=== PATIENT | male | born 1950 | race Caucasian/White ===

== ENCOUNTER 2022-03-26 11:35 | Outpatient (CLI) | payer OTHER, SELFPAY | END 2022-03-26 11:36 | disposition home or self-care (01) | PROVIDERS: PCP Family Medicine; Visit Provider Family Medicine | DX: E78.5 Hyperlipidemia, unspecified (principal) | CPT/HCPCS: 80061; 84460 ==

== ENCOUNTER 2022-09-06 08:05 | Outpatient (CLI) | payer OTHER, SELFPAY | END 2022-09-06 08:06 | disposition home or self-care (01) | LOC: NFLDREF 08:06 | PROVIDERS: PCP Family Medicine; Visit Provider Internal Medicine | DX: Z00.00 Encounter for general adult medical examination without abnormal findings (principal); Z12.5 Encounter for screening for malignant neoplasm of prostate | CPT/HCPCS: 84153 ==

== ENCOUNTER 2023-03-02 07:32 | Outpatient (CLI) | payer OTHER, SELFPAY | END 2023-03-02 07:33 | disposition home or self-care (01) | LOC: NFLDREF 12:18 | PROVIDERS: PCP Family Medicine; Referring Provider Family Medicine; Visit Provider Internal Medicine | DX: R97.20 Elevated prostate specific antigen [PSA] (principal); Z12.5 Encounter for screening for malignant neoplasm of prostate | CPT/HCPCS: 84153 ==

== ENCOUNTER 2023-07-28 07:30 | Outpatient (CLI) | payer OTHER, SELFPAY ==
--- OUTSIDE RECORDS SUMMARY | 2023-07-28 12:05 | XMS_ITS | Clinical Summary ---
Author Name Unknown Organization [facility] Address [place], [place] [address] Care Team Providers Care Taffy Puller Name Role Phone Pcp, No Primary Care Provider Unavailabl e Allergies Active Allergy Reactions Criticality Noted Date Comments Oxycodone Itching Low 08/15/2020 Medications Medication Sig Dispensed Refills Start Date End Date Status meloxicam 15 mg tablet 0 08/15/2020 Ac tive aspirin (ECOTRIN) 81 mg enteric coated tablet Daily 0 Active Social History Tobacco Use Types Packs/Day Years Used Date Smoking Tobacco: Never Assessed Social Connections Answer Date Recorded Frequency of Communication with Friends and Fami ly Not on file 10/08/2021 Sex and Gender Information Value Date Recorded Sex Assigned at Not on file Gender Identity Not on file Sexual Orientation Not on file Last Filed Vital Signs Vital Sign Reading Time Taken Comments Blood Pressure 190/64 09/02/2020 3:42 PM 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, typical Bp is normal Pulse 83 09/02/2020 3:42 PM 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 LEADER Temperature - - Respiratory Rate - - Oxygen Saturation 97% 09/02/2020 3:4 2 PM 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 LEADER Inhaled Oxygen Concentration - - Weight 87.5 kg (193 lb) 09/02/2020 3:42 PM 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 LEADER Height - - Body Mass Index - - Plan of Treatment Health Maintenance Due Date Last Done Comments COVID-19 vaccine series (#1) 05/23/1951 Tdap 1961 Depression screening for age 12+ 1962 BMI (ht and wt on same day) for age 18+ 1968 Hepatitis C screening for age 18-79 1968 Tetanus booster 1970 Colonoscopy through age 75 11/21/1995 Zoster (shingles) series for age 50+ (1 of 2) 11/21/19 01 Lipids for age 45-75 06/23/2011 06/23/2006 Medicare Wellness for age 65+ 11/21/2015 Pneumococcal series for age 65+ (1 of 1 - PCV) 016 Influenza for age 65+ 02/25/2023 Care Teams Taffy Puller Relationship Specialty Start Date End Date Pcp, No . PCP - General 09/02/20
== END 2023-07-28 07:31 | disposition home or self-care (01) ==
LOC: NFLDREF 12:04
PROVIDERS: PCP Internal Medicine; Referring Provider Internal Medicine; Visit Provider Family Medicine
DX: E78.5 Hyperlipidemia, unspecified (principal); I10 Essential (primary) hypertension; R97.20 Elevated prostate specific antigen [PSA]
CPT/HCPCS: 80053; 80061; 84153

== ENCOUNTER 2023-08-08 15:00 | Outpatient (CLI) | payer OTHER, SELFPAY ==
--- OUTSIDE RECORDS SUMMARY | 2023-08-08 15:03 | XMS_ITS | Clinical Summary ---
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 PCP - General 09/02/20
== END 2023-08-08 15:01 | disposition home or self-care (01) ==
PROVIDERS: PCP Internal Medicine; Visit Provider Family Medicine
DX: Z00.00 Encounter for general adult medical examination without abnormal findings (principal); D64.9 Anemia, unspecified; I10 Essential (primary) hypertension; E78.00 Pure hypercholesterolemia, unspecified
CPT/HCPCS: 82607; 82728; 83540

== ENCOUNTER 2023-11-10 08:12 | Outpatient (CLI) | payer OTHER, SELFPAY ==
--- OUTSIDE RECORDS SUMMARY | 2023-11-10 08:15 | XMS_ITS | Clinical Summary ---
Author Name Unknown Organization [facility] Address [place], [place] [address] Care Team Providers Care Employee Representative Name Role Phone Pcp, No Primary Care Provider Unavailabl e Allergies Active Allergy Reactions Criticality Noted Date Comments Oxycodone Itching Low 08/15/2020 Medications Medication Sig Dispensed Refills Start Date End Date Status meloxicam 15 mg tablet 08/15/2020 Ac tive aspirin (ECOTRIN) 81 mg enteric coated tablet Daily Active Social History Tobacco Use Types Packs/Day [...] Comments Blood Pressure 190/64 09/02/2020 3:42 PM INSTRUCTOR LOOPING 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, typical Bp is normal Pulse 83 09/02/2020 3:42 PM INSTRUCTOR LOOPING Temperature - - Respiratory Rate - - Oxygen Saturation 97% 09/02/2020 3:4 2 PM INSTRUCTOR LOOPING Inhaled Oxygen Concentration - - Weight 87.5 kg (193 lb) 09/02/2020 3:42 PM INSTRUCTOR LOOPING Height - - Body Mass Index - - Plan of Treatment Health Maintenance Due Date Last Done Comments Tdap 1961 Depression screening for age 12+ [...] 65+ (1 of 1 - PCV) 016 COVID-19 vaccine series (1 - 2022-24 season) 3 Influenza for age 65+ 02/26/2024 Procedures Procedure Name Priority Date/Time Associated Diagnosis Comments LIPID PANEL Timed 06/23/2006 7:11 AM INSTRUCTOR LOOPING from Last 3 Months or Most Recently Relevant to Health Maintenance Results * (ABNORMAL) LIPID PANEL (06/23/2006 7:11 AM INSTRUCTOR LOOPING) CHOLESTEROL,TOTAL 244(H) 110 - 199 mg/dL [facility] TRIGLYCERIDES 74 <150 mg/dL [facility] HDL CHOLESTEROL 67 >40 mg/dL [facility] CHOL/HDL RATIO 3.64 <4.51 [facility] LDL CHOLESTEROL 162(H) <131 mg/dL [facility] PATIENT STATUS Fasting [facility] 06/23/2006 7:11 AM INSTRUCTOR LOOPING 06/23/2006 7:11 AM INSTRUCTOR LOOPING Bunny Greene MD CHEMISTRY [facility] [address] [place], [place] [id number] from Last 3 Months or Most Recently Relevant to Health Maintenance Care Teams Employee Representative Relationship Specialty Start Date End Date Pcp, No . PCP - General 09/02/20
== END 2023-11-10 08:13 | disposition home or self-care (01) ==
PROVIDERS: PCP Internal Medicine; Visit Provider Family Medicine
DX: D64.9 Anemia, unspecified (principal)
CPT/HCPCS: 82728; 83540; 83550

== ENCOUNTER 2023-12-12 13:10 | Outpatient (CLI) | payer OTHER, SELFPAY ==
--- OUTSIDE RECORDS SUMMARY | 2023-12-12 13:23 | XMS_ITS | Clinical Summary ---
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, typical Bp is normal Pulse 83 09/02/2020 3:42 PM SEALER DRY CELL Temperature - - Respiratory Rate - - Oxygen Saturation 97% 09/02/2020 3:4 2 PM SEALER DRY CELL Inhaled Oxygen Concentration - - Weight 87.5 kg (193 lb) 09/02/2020 3:42 PM SEALER DRY CELL Height - - Body Mass Index - [...] Comments LIPID PANEL Timed 06/23/2006 7:11 AM SEALER DRY CELL from Last 3 Months or Most Recently Relevant to Health Maintenance Results * (ABNORMAL) LIPID PANEL (06/23/2006 7:11 AM SEALER DRY CELL) CHOLESTEROL,TOTAL 244(H) 110 - 199 mg/dL [facility] TRIGLYCERIDES 74 <150 mg/dL [facility] HDL CHOLESTEROL 67 >40 mg/dL [facility] CHOL/HDL RATIO 3.64 <4.51 [facility] LDL CHOLESTEROL 162(H) <131 mg/dL [facility] PATIENT STATUS Fasting [facility] 06/23/2006 7:11 AM SEALER DRY CELL 06/23/2006 7:11 AM SEALER DRY CELL uBnny Greene MD CHEMISTRY [facility] [address] [place] [address] from Last 3 Months or Most Recently Relevant to Health Maintenance Care Teams Audit Intern Relationship Specialty Start Date End Date Pcp, No . PCP - General 09/02/20
== END 2023-12-12 13:11 | disposition home or self-care (01) ==
PROVIDERS: PCP Internal Medicine; Visit Provider Registered Nurse
DX: R11.0 Nausea (principal); D64.9 Anemia, unspecified; R07.89 Other chest pain; I10 Essential (primary) hypertension
CPT/HCPCS: 83690; 84484

== ENCOUNTER 2023-12-23 08:59 | Outpatient (CLI) | payer OTHER, SELFPAY ==
--- OUTSIDE RECORDS SUMMARY | 2023-12-23 09:08 | XMS_ITS | Clinical Summary ---
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, typical Bp is normal Pulse 83 09/02/2020 3:42 PM MICROBIOLOGY PROFESSOR Temperature - - Respiratory Rate - - Oxygen Saturation 97% 09/02/2020 3:4 2 PM MICROBIOLOGY PROFESSOR Inhaled Oxygen Concentration - - Weight 87.5 kg (193 lb) 09/02/2020 3:42 PM MICROBIOLOGY PROFESSOR Height - - Body Mass Index - [...] Comments LIPID PANEL Timed 06/23/2006 7:11 AM MICROBIOLOGY PROFESSOR from Last 3 Months or Most Recently Relevant to Health Maintenance Results * (ABNORMAL) LIPID PANEL (06/23/2006 7:11 AM MICROBIOLOGY PROFESSOR) CHOLESTEROL,TOTAL 244(H) 110 - 199 mg/dL [facility] TRIGLYCERIDES 74 <150 mg/dL [facility] HDL CHOLESTEROL 67 >40 mg/dL [facility] CHOL/HDL RATIO 3.64 <4.51 [facility] LDL CHOLESTEROL 162(H) <131 mg/dL [facility] PATIENT STATUS Fasting [facility] 06/23/2006 7:11 AM MICROBIOLOGY PROFESSOR 06/23/2006 7:11 AM MICROBIOLOGY PROFESSOR Bunny Greene MD CHEMISTRY [facility] [address] [place] [address] from Last 3 Months or Most Recently Relevant to Health Maintenance Care Teams Director Athletic Relationship Specialty Start Date End Date Pcp, No . PCP - General 09/02/20
== END 2023-12-23 09:00 | disposition home or self-care (01) ==
LOC: NFLDREF 09:06
PROVIDERS: PCP Internal Medicine; Visit Provider Registered Nurse
DX: R63.4 Abnormal weight loss (principal); R10.13 Epigastric pain; I10 Essential (primary) hypertension
CPT/HCPCS: 80053

== ENCOUNTER 2024-01-02 16:04 | Outpatient (CLI) | payer OTHER, SELFPAY ==
--- OUTSIDE RECORDS SUMMARY | 2024-01-02 16:06 | XMS_ITS | Clinical Summary ---
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, typical Bp is normal Pulse 83 09/02/2020 3:42 PM CAKE BATTER MIXER Temperature - - Respiratory Rate - - Oxygen Saturation 97% 09/02/2020 3:4 2 PM CAKE BATTER MIXER Inhaled Oxygen Concentration - - Weight 87.5 kg (193 lb) 09/02/2020 3:42 PM CAKE BATTER MIXER Height - - Body Mass Index - [...] Comments LIPID PANEL Timed 06/23/2006 7:11 AM CAKE BATTER MIXER from Last 3 Months or Most Recently Relevant to Health Maintenance Results * (ABNORMAL) LIPID PANEL (06/23/2006 7:11 AM CAKE BATTER MIXER) CHOLESTEROL,TOTAL 244(H) 110 - 199 mg/dL [facility] TRIGLYCERIDES 74 <150 mg/dL [facility] HDL CHOLESTEROL 67 >40 mg/dL [facility] CHOL/HDL RATIO 3.64 <4.51 [facility] LDL CHOLESTEROL 162(H) <131 mg/dL [facility] PATIENT STATUS Fasting [facility] 06/23/2006 7:11 AM CAKE BATTER MIXER 06/23/2006 7:11 AM CAKE BATTER MIXER Bunny Greene MD CHEMISTRY [facility] [address] [place] [address] from Last 3 Months or Most Recently Relevant to Health Maintenance Care Teams Pediatric Care Coordinator Relationship Specialty Start Date End Date Pcp, No . PCP - General 09/02/20
--- NOTE | 2024-01-02 16:45 | CRLHL7_ITS ---
For Patients: As a result of the Century Cures Act, medical imaging exams and procedure reports are released immediately into your electronic medical record. You may view this report before your referring provider. If you have questions, please contact your health care provider. INDICATION: Abdominal pain TECHNIQUE: CT abdomen and pelvis acquired with 82 mL Isovue 370 IV contrast. COMPARISON: None. FINDINGS: Lower chest: Cardiac enlargement. Liver: Unremarkable. Normal in size and attenuation. No masses. Gallbladder and bile ducts: Multiple calcified stones in the gallbladder. No biliary dilation. Pancreas: Unremarkable. No mass or inflammation. Spleen: Unremarkable. Normal in size. No masses. Adrenal glands: Unremarkable. No nodules. Kidneys: Right renal cyst. GI tract: Sigmoid diverticulosis without diverticulitis. Normal appendix. Vasculature: Unremarkable. Mesenteric arteries are patent. Lymph nodes: No lymphadenopathy. Omentum/Peritoneum/Abdominal Wall: Unremarkable. No sign of mass or infiltration. No free air or significant free fluid. Pelvis: Moderate prostate enlargement. Bones: Chronic right inferior pubic ramus fracture. Ankylosis of the right SI joint. Spinal degenerative changes. IMPRESSION: 1. Cholelithiasis. 2. Sigmoid diverticulosis. No evidence for acute diverticulitis. 3. Cardiomegaly. Please note that all CT scans at this facility use dose modulation, iterative reconstruction, and/or weight-based dosing when appropriate to reduce radiation dose to as low as reasonably achievable. Dictated by Brenden Rhodes MD @ 01/04/2024 8:34:00 AM (Electronically Signed)
== END 2024-01-02 16:05 | disposition home or self-care (01) ==
LOC: CT 16:05
PROVIDERS: PCP Internal Medicine; Visit Provider Registered Nurse
DX: R10.9 Unspecified abdominal pain (principal); K80.20 Calculus of gallbladder without cholecystitis without obstruction; K57.30 Diverticulosis of large intestine without perforation or abscess without bleeding; I51.7 Cardiomegaly
CPT/HCPCS: 74177; Q9967

== ENCOUNTER 2024-01-06 09:49 | Outpatient (CLI) | payer OTHER, SELFPAY ==
--- OUTSIDE RECORDS SUMMARY | 2024-01-06 09:52 | XMS_ITS | Clinical Summary ---
Author Organization [facility] Address [place], [place] [address] Care Team Providers Care Electrical Design Technologist Name Role Phone Pcp, No Primary Care [...] Comments Blood Pressure 190/64 09/02/2020 3:42 PM DISTRIBUTOR OF DIRECTORIES 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, typical Bp is normal Pulse 83 09/02/2020 3:42 PM DISTRIBUTOR OF DIRECTORIES Temperature - - Respiratory Rate - - Oxygen Saturation 97% 09/02/2020 3:4 2 PM DISTRIBUTOR OF DIRECTORIES Inhaled Oxygen Concentration - - Weight 87.5 kg (193 lb) 09/02/2020 3:42 PM DISTRIBUTOR OF DIRECTORIES Height - - Body Mass Index - [...] Comments LIPID PANEL Timed 06/23/2006 7:11 AM DISTRIBUTOR OF DIRECTORIES from Last 3 Months or Most Recently Relevant to Health Maintenance Results * (ABNORMAL) LIPID PANEL (06/23/2006 7:11 AM DISTRIBUTOR OF DIRECTORIES) CHOLESTEROL,TOTAL 244(H) 110 - 199 mg/dL [facility] TRIGLYCERIDES 74 <150 mg/dL [facility] HDL CHOLESTEROL 67 >40 mg/dL [facility] CHOL/HDL RATIO 3.64 <4.51 [facility] LDL CHOLESTEROL 162(H) <131 mg/dL [facility] PATIENT STATUS Fasting [facility] 06/23/2006 7:11 AM DISTRIBUTOR OF DIRECTORIES 06/23/2006 7:11 AM DISTRIBUTOR OF DIRECTORIES Bunny Greene MD CHEMISTRY [facility] [address] [place] [address] from Last 3 Months or Most Recently Relevant to Health Maintenance Care Teams Electrical Design Technologist Relationship Specialty Start Date End Date Pcp, No . PCP - General 09/02/20
--- NOTE | 2024-01-06 10:15 | CRLHL7_ITS ---
For Patients: As a result of the Century Cures Act, medical imaging exams and procedure reports are released immediately into your electronic medical record. You may view this report before your referring provider. If you have questions, please contact your health care provider. INDICATION: Gallbladder calculi COMPARISON: CT 01/02/2024 TECHNIQUE: Real time vázquez scale imaging and color Doppler analysis was performed of the gallbladder. FINDINGS: Gallbladder wall is thickened and edematous and measures 4.5 millimeters. The common bile duct measures 5.5 millimeters. No pericholecystic fluid. Echogenic foci are present within the gallbladder lumen. IMPRESSION: Normal cholelithiasis. Gallbladder wall thickening with gallbladder wall edema suggests developing cholecystitis. Surgical referral recommended. Dictated by Bunny Bell MD @ 01/07/2024 8:10:38 PM (Electronically Signed)
== END 2024-01-06 09:50 | disposition home or self-care (01) ==
PROVIDERS: PCP Internal Medicine; Visit Provider Registered Nurse
DX: K80.20 Calculus of gallbladder without cholecystitis without obstruction (principal)
CPT/HCPCS: 76705

== ENCOUNTER 2024-01-19 08:56 | Outpatient (CLI) | payer OTHER, SELFPAY ==
--- OUTSIDE RECORDS SUMMARY | 2024-01-19 08:58 | XMS_ITS | Clinical Summary ---
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, typical Bp is normal Pulse 83 09/02/2020 3:42 PM LOAN COLLECTOR Temperature - - Respiratory Rate - - Oxygen Saturation 97% 09/02/2020 3:4 2 PM LOAN COLLECTOR Inhaled Oxygen Concentration - - Weight 87.5 kg (193 lb) 09/02/2020 3:42 PM LOAN COLLECTOR Height - - Body Mass Index - [...] Comments LIPID PANEL Timed 06/23/2006 7:11 AM LOAN COLLECTOR from Last 3 Months or Most Recently Relevant to Health Maintenance Results * (ABNORMAL) LIPID PANEL (06/23/2006 7:11 AM LOAN COLLECTOR) CHOLESTEROL,TOTAL 244(H) 110 - 199 mg/dL [facility] TRIGLYCERIDES 74 <150 mg/dL [facility] HDL CHOLESTEROL 67 >40 mg/dL [facility] CHOL/HDL RATIO 3.64 <4.51 [facility] LDL CHOLESTEROL 162(H) <131 mg/dL [facility] PATIENT STATUS Fasting [facility] 06/23/2006 7:11 AM LOAN COLLECTOR 06/23/2006 7:11 AM LOAN COLLECTOR Bunny Greene MD CHEMISTRY [facility] [address] [place] [address] from Last 3 Months or Most Recently Relevant to Health Maintenance Care Teams Cone Tender Relationship Specialty Start Date End Date Pcp, No . PCP - General 09/02/20
--- NOTE | 2024-01-19 09:15 | CRLHL7_ITS ---
For Patients: As a result of the Century Cures Act, medical imaging exams and procedure reports are released immediately into your electronic medical record. You may view this report before your referring provider. If you have questions, please contact your health care provider. Indication: Abdominal pain cholelithiasis Technique: Nuclear medicine hepatobiliary scan with gallbladder ejection fraction after the intravenous administration of 5.1 millicuries technetium 99 M Mebrofenin and 1.6 micrograms of CCK. Comparison: CT abdomen and pelvis January 02, 2024 Findings: Normal hepatic extraction and excretion of the radiopharmaceutical with prompt appearance of the common bile duct followed by the gallbladder and then the small bowel. Filling defect within the gallbladder is compatible with known gallstones. There is no enterogastric reflux. After CCK there is normal gallbladder contraction. Calculated gallbladder ejection fraction is 70 percent. Impression: Cholelithiasis, otherwise negative study. Dictated by Benito Augustin MD @ 01/20/2024 1:27:09 PM (Electronically Signed)
== END 2024-01-19 08:57 | disposition home or self-care (01) ==
LOC: NM 08:56
PROVIDERS: PCP Internal Medicine; Visit Provider Surgery
DX: R10.9 Unspecified abdominal pain (principal); K80.20 Calculus of gallbladder without cholecystitis without obstruction
CPT/HCPCS: 78227; A9537; J2805

== ENCOUNTER 2024-02-13 07:05 | Outpatient (CLI) | payer OTHER, SELFPAY ==
--- OUTSIDE RECORDS SUMMARY | 2024-02-13 07:06 | XMS_ITS | Clinical Summary ---
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, typical Bp is normal Pulse 83 09/02/2020 3:42 PM DENTAL INSURANCE COORDINATOR Temperature - - Respiratory Rate - - Oxygen Saturation 97% 09/02/2020 3:4 2 PM DENTAL INSURANCE COORDINATOR Inhaled Oxygen Concentration - - Weight 87.5 kg (193 lb) 09/02/2020 3:42 PM DENTAL INSURANCE COORDINATOR Height - - Body Mass Index - [...] Comments LIPID PANEL Timed 06/23/2006 7:11 AM DENTAL INSURANCE COORDINATOR from Last 3 Months or Most Recently Relevant to Health Maintenance Results * (ABNORMAL) LIPID PANEL (06/23/2006 7:11 AM DENTAL INSURANCE COORDINATOR) CHOLESTEROL,TOTAL 244(H) 110 - 199 mg/dL [facility] TRIGLYCERIDES 74 <150 mg/dL [facility] HDL CHOLESTEROL 67 >40 mg/dL [facility] CHOL/HDL RATIO 3.64 <4.51 [facility] LDL CHOLESTEROL 162(H) <131 mg/dL [facility] PATIENT STATUS Fasting [facility] 06/23/2006 7:11 AM DENTAL INSURANCE COORDINATOR 06/23/2006 7:11 AM DENTAL INSURANCE COORDINATOR Bunny Greene MD CHEMISTRY [facility] [address] [place] [address] from Last 3 Months or Most Recently Relevant to Health Maintenance Care Teams Heel Molder Relationship Specialty Start Date End Date Pcp, No . PCP - General 09/02/20
--- NOTE | 2024-02-13 09:18 | W.ANESCHARGE ---
Anesthesia Charges Start Date/Time Anesthesia Start Date: 02/13/24 Anesthesia Start Time: 08:02 Stop Date/Time Anesthesia Stop Date: 02/13/24 Anesthesia Stop Time: 08:53 Summary Extremes of Age - Over 70 or under 1: MDA
--- NOTE | 2024-02-13 09:56 | P.ANES_ITS ---
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
== END 2024-02-13 07:06 | disposition home or self-care (01) ==
LOC: OP CLINIC 07:05
PROVIDERS: PCP Internal Medicine; Visit Provider Internal Medicine
DX: R10.13 Epigastric pain (principal); K57.30 Diverticulosis of large intestine without perforation or abscess without bleeding
CPT/HCPCS: 00813; 43239; 45378; 88305; 99100; J2704

== ENCOUNTER 2024-11-23 08:32 | Outpatient (CLI) | payer OTHER, SELFPAY | END 2024-11-23 08:33 | disposition home or self-care (01) | LOC: NFLDREF 11-28 00:46 | PROVIDERS: PCP Family Medicine; Referring Provider Family Medicine; Visit Provider Family Medicine | DX: I10 Essential (primary) hypertension (principal); E78.00 Pure hypercholesterolemia, unspecified; Z12.5 Encounter for screening for malignant neoplasm of prostate | CPT/HCPCS: 80053; 80061; G0103 ==